=== PATIENT | male | born 1955 | race Caucasian/White ===

== ENCOUNTER 2018-01-13 16:31 | Observation (INO) | payer OTHER ==
[~2018-01-13] VITALS: Ht 172.7 cm; Wt 87.1 kg
[2018-01-13 17:14] LABS: HEMATOCRIT 41.5 % (38.0-50.0); HEMOGLOBIN 14.9 G/DL (12.5-16.6); MCH 31.3 PG (29.0-34.0); MCHC 35.9 G/DL (30.0-36.0); MCV 87.2 FL (86-99); PLATELET COUNT 169 K/uL (156-360); RBC DIS.WIDTH-CV 11.9 % (11.8-14.6); RBC DIS.WIDTH-SD 38.6 % (39-53); RED BLOOD COUNT 4.76 M/uL (4.00-5.50); WHITE BLOOD COUNT 11.1 K/uL (4.1-10.2)
[2018-01-13] MEDS ORDERED: LISINOPRIL10 MG PO (17:19)
[2018-01-13] MEDS ORDERED: OMEPRAZOLE40 M1 PO (17:19)
[2018-01-13] MEDS ORDERED: TAMSULOSIN HCL0.4 MG PO (17:19)
[2018-01-13 17:26] LABS: CHLORIDE 104 mEq/L (99-109); POTASSIUM 4.3 mEq/L (3.7-5.4); SODIUM 141 mEq/L (136-147)
[2018-01-13 17:27] LABS: GLUCOSE 111 mg/dL (70-99)
[2018-01-13 17:31] LABS: CREATININE 1.3 mg/dL (0.6-1.3); GFR ESTIMATE (CALCULATED) > 59 mL/min/ (58.99-99999)
[2018-01-13 17:32] LABS: UREA NITROGEN (BUN) 13 mg/dL (9-23)
[2018-01-13 17:38] LABS: TROP-I INTERPRETATION NEGATIVE; TROPONIN-I < 0.01 ng/mL (0.0-0.30)
[2018-01-13 17:57] LABS: ALBUMIN 4.4 g/dL (3.2-4.8)
[2018-01-13 18:00] LABS: TOTAL PROTEIN 7.4 g/dL (6.4-8.3)
[2018-01-13 18:02] LABS: TOTAL BILIRUBIN 0.5 mg/dL (0.0-1.0)
[2018-01-13 18:03] LABS: ALKALINE PHOSPHATASE 55 IU/L (3-129)
[2018-01-13 18:05] LABS: AST (GOT) 20 IU/L (2-34); DIRECT BILIRUBIN 0.2 mg/dL (0.0-0.3)
[2018-01-13 18:06] LABS: ALT (GPT) 23 IU/L (3-49); LIPASE 19 U/L (1.0-51.0)
[2018-01-13 18:17] LABS: AMYLASE 68 IU/L (1-118)
[2018-01-13 19:09] VITALS: BP 135/86
[2018-01-14 04:37] VITALS: BP 150/80
[2018-01-14 07:10] VITALS: BP 127/68
[2018-01-14 12:00] VITALS: BP 138/68
[2018-01-14 15:50] VITALS: BP 131/72
[2018-01-14 18:35] VITALS: BP 155/74
[2018-01-14 23:26] VITALS: BP 115/53
[2018-01-15 03:51] VITALS: BP 133/72
[2018-01-15 07:59] VITALS: BP 144/67
[2018-01-15] MEDS ORDERED: PERCOCET 5/31 TABLET PO (09:07)
[2018-01-15] MEDS ORDERED: AUGMENTIN875 MG PO (09:07)
== END 2018-01-15 10:18 | disposition home or self-care (01) ==
LOC: EME 16:31 → 4SOUTH 20:20 → EDOF 20:20 → ENRESERV 20:25 → 4SOUTH 21:21 → ENPENDDIS 01-15 10:02 → 4SOUTH 01-15 10:18
PROC: 0FT44ZZ Resection of Gallbladder, Percutaneous Endoscopic Approach (ICD-10-PCS; principal; 2018-01-14)
DX: K80.00 Calculus of gallbladder with acute cholecystitis without obstruction (principal); K82.1 Hydrops of gallbladder; I10 Essential (primary) hypertension; K21.9 Gastro-esophageal reflux disease without esophagitis; N40.0 Benign prostatic hyperplasia without lower urinary tract symptoms
CPT/HCPCS: 71046; 76705; 80048; 80076; 82150; 83690; 84484; 85027; 87070; 87075; 87205; 88304; 93005; 99281; 99285; G0378; J0131; J1100; J1885; J2250; J2270; J2405; J3010; S0028; S0074